=== PATIENT | male | born 1950 | race Caucasian/White ===

== ENCOUNTER 2021-11-22 12:06 | Emergency (ER) | payer MEDICARE, OTHER, SELFPAY ==
[2021-11-22 12:24] VITALS: BP 161/65; PULSE 78; RESP 16; TEMP 36.7; O2SAT 99
--- NOTE | 2021-11-22 13:19 | ED.SKABFB ---
HPI - Skin/Abscess/Foreign Bdy General Chief complaint: Skin/Abscess/Foreign Body Stated complaint: rash Source: patient Mode of arrival: ambulatory Limitations: no limitations History of Present Illness HPI narrative: This is a 71-year-old male comes in complaining of a rash to his left forearm that he has had for the past 3 days. Patient states the Rash for 3 day has been taking tricinomlone mowing posion seferino. Patient has had this rash before but does not know where it comes from or why it continues to come back pt states that the rash is itchy and denies taking benadryl and or anything except for the cream Related Data Home Medications Medication Instructions Recorded Confirmed amlodipine 10 mg tablet 10 mg DAILY 11/22/21 11/22/21 atorvastatin 20 mg tablet 20 mg DAILY 11/22/21 11/22/21 fenofibrate nanocrystallized 145 145 mg PO DAILY 11/22/21 11/22/21 mg tablet glimepiride 1 mg tablet 1 mg DAILY 11/22/21 11/22/21 lisinopril 40 mg tablet 40 mg DAILY 11/22/21 11/22/21 metformin 500 mg tablet 1,000 mg QID 11/22/21 11/22/21 rabeprazole 20 mg tablet,delayed 20 mg PO DAILY 11/22/21 11/22/21 release sitagliptin 100 mg tablet (Januvia) 100 mg DAILY 11/22/21 11/22/21 Allergies Allergy/AdvReac Type Severity Reaction Status Date / Time Penicillins Allergy Unknown Rash Verified 11/22/21 13:11 Review of Systems Review of Systems: rash on left arm All systems reviewed & are unremarkable except as noted in HPI and below PMFSH Family History Family History Sibling Patient's sister is in good health Family history of diabetes mellitus in first degree relative Mother Family history of respiratory disorder, Onset Age: 73 Patient's mother is Father Family history of diabetes mellitus in first degree relative Social History Social History Smoking status: Never smoker Alcohol intake: current Comments At time as signature, I have reviewed and agree with nursing past medical, social, surgical and family history. Please see nursing chart for further information. There is no relevant family history pertinent to the presenting complaint. Exam Narrative: GENERAL:Well-appearing, well-nourished, and in no acute distress. HEAD:Normocephalic, atraumatic. EYES: PERRLA and EOMI. ENT: Nares clear, no rhinorrhea or epistaxis. Mucous membranes moist. CHEST: Clear to auscultation. No respiratory distress. HEART multiple Normal peripheral pulses. ABDOMEN: Soft, nontender, nondistended, normal active bowel sounds. EXTREMITIES: Normal range of motion. No edema. SKIN: Warm, dry, fine erythema the left forearm further urticaria rash. NEURO: No focal deficits. Alert and oriented x3. Course Course Level of Care: Express Care Visit Vital Signs Vital signs: Vital Signs Temperature 98.0 F 11/22/21 12:24 Pulse Rate 78 11/22/21 12:24 Respiratory Rate 16 11/22/21 12:24 Blood Pressure 161/65 H 11/22/21 12:24 Pulse Oximetry 99 11/22/21 12:24 Oxygen Delivery Room Air 11/22/21 12:24 Temperature 98.0 F 11/22/21 12:24 Pulse Rate 78 11/22/21 12:24 Respiratory Rate 16 11/22/21 12:24 Blood Pressure 161/65 H 11/22/21 12:24 Pulse Oximetry 99 11/22/21 12:24 Oxygen Delivery Room Air 11/22/21 12:24 MDM - Skin/Abscess/Foreign Bdy Differential Diagnosis Differential diagnosis: Likely abscess of skin or subcutaneous tissue, urticaria, allergic reaction to drug, cellulitis, eczema, insect bites and contact dermatitis Discharge Plan Discharge Clinical Impression: Poison seferino dermatitis Contact dermatitis Qualifiers: Contact dermatitis type: unspecified Contact dermatitis trigger: non-food plants Qualified Code(s): L25.5 - Unspecified contact dermatitis due to plants, except food Patient Disposition: Home, Self-Care Condition: Stable Instructions: Antib
== END 2021-11-22 13:27 | disposition home or self-care (01) ==
PROVIDERS: Emergency Provider Nurse Practitioner Family; PCP Family Medicine
DX: L23.7 Allergic contact dermatitis due to plants, except food (principal); E78.00 Pure hypercholesterolemia, unspecified; I10 Essential (primary) hypertension
CPT/HCPCS: 99213; G0463